=== PATIENT | female | born 1950 | race Asian ===

== ENCOUNTER → 2017-09-10 | Outpatient (CLI) | payer MEDICAID, OTHER | LOC: M CARPUL 09:01 | DX: R01.1 Cardiac murmur, unspecified (principal); R91.8 Other nonspecific abnormal finding of lung field; J47.9 Bronchiectasis, uncomplicated; R93.1 Abnormal findings on diagnostic imaging of heart and coronary circulation | CPT/HCPCS: 71250 ==

== ENCOUNTER → 2017-09-27 | Outpatient (CLI) | payer MEDICAID | LOC: M RAD 13:20 | DX: Z12.31 Encounter for screening mammogram for malignant neoplasm of breast (principal); Z78.0 Asymptomatic menopausal state | CPT/HCPCS: 77067 ==

== ENCOUNTER → 2017-10-10 | Outpatient (CLI) | payer MEDICAID | LOC: M CARPUL 14:10 | DX: R91.8 Other nonspecific abnormal finding of lung field (principal) | CPT/HCPCS: 94060 ==

== ENCOUNTER 2017-12-27 07:11 | Day surgery (SDC) | payer MEDICAID ==
[2017-12-27] MEDS ORDERED: LIDOCAINE 2% INJ 100 MG/5 ML SDV (FOR ANES.) As Ordered (07:46)
[2017-12-27] MEDS ORDERED: PROPOFOL 200 MG/20 ML VIAL As Ordered (07:46)
[2017-12-27] MEDS: NS 1,000 ML IV (08:00)
[2017-12-27] MEDS ORDERED: GLYCOPYRROLATE INJ 0.2 MG/ML 2 ML VIAL As Ordered (09:09)
== END 2017-12-27 09:53 | disposition home or self-care (01) ==
LOC: M OPP 07:11
DX: Z12.11 Encounter for screening for malignant neoplasm of colon (principal); D12.4 Benign neoplasm of descending colon; I10 Essential (primary) hypertension; Z78.0 Asymptomatic menopausal state; R06.02 Shortness of breath; R09.02 Hypoxemia; Z79.899 Other long term (current) drug therapy
CPT/HCPCS: 45385